=== PATIENT | male | born 1980 | race Caucasian/White ===

== ENCOUNTER 2016-07-30 18:16 | Emergency (ER) | payer OTHER, MEDICAID ==
[2016-07-30 19:08] VITALS: BP 145/79; PULSE 95; RESP 20; TEMP 98.9
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
== END 2016-07-30 20:17 | disposition left against medical advice (07) ==
LOC: EC 18:16
DX: Z04.1 Encounter for examination and observation following transport accident (principal)
CPT/HCPCS: 99499

== ENCOUNTER 2016-08-06 18:40 | Emergency (ER) | payer OTHER, MEDICAID ==
[2016-08-06 19:04] VITALS: RESP 18
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
[2016-08-06] MEDS ORDERED: HYDROcodone/APAP 10-325MG 1 EACH TAB PO ONE (20:36)
[2016-08-06 21:01] VITALS: BP 131/71; PULSE 95; TEMP 98.2
== END 2016-08-06 21:32 | disposition home or self-care (01) ==
LOC: EC 18:40
DX: S83.91XA Sprain of unspecified site of right knee, initial encounter (principal); S80.11XA Contusion of right lower leg, initial encounter; Z87.891 Personal history of nicotine dependence; Z98.890 Other specified postprocedural states; V87.8XXA Person injured in other specified noncollision transport accidents involving motor vehicle (traffic), initial encounter; Y92.410 Unspecified street and highway as the place of occurrence of the external cause
CPT/HCPCS: 73562; 93971; 99284; L1830

== ENCOUNTER 2016-11-28 19:58 | Emergency (ER) | payer MEDICAID ==
[2016-11-28] MEDS ORDERED: KETOROLAC 60 MG/2 ML VIAL IM STA (20:27)
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
[2016-11-28] MEDS ORDERED: AMOXICILLIN 875 MG TAB PO STA (21:30)
[2016-11-28] MEDS ORDERED: LIDOCAINE/EPINEPHR/TETRACAINE 5 ML BOTTLE TOPICAL ONE (21:37)
[2016-11-28 22:12] VITALS: RESP 18
[2016-11-28] MEDS ORDERED: LORazepam 1 MG TAB PO STA (23:05)
[2016-11-28] MEDS ORDERED: HYDROcodone/APAP 7.5-325MG 1 EACH TAB PO ONE (23:05)
[2016-11-28 23:33] VITALS: BP 133/66; PULSE 89; TEMP 97.1
== END 2016-11-28 23:34 | disposition home or self-care (01) ==
LOC: EC 19:58
DX: S02.5XXA Fracture of tooth (traumatic), initial encounter for closed fracture (principal); S01.81XA Laceration without foreign body of other part of head, initial encounter; F41.9 Anxiety disorder, unspecified; Z79.899 Other long term (current) drug therapy; Z87.891 Personal history of nicotine dependence; Z53.29 Procedure and treatment not carried out because of patient's decision for other reasons; Y09 Assault by unspecified means; Y93.01 Activity, walking, marching and hiking
CPT/HCPCS: 99283 ×2; 96372 ×2; 70486; 70450; J1885

== ENCOUNTER 2016-12-11 14:44 | Emergency (ER) | payer MEDICAID ==
[2016-12-11 15:20] VITALS: BP 151/87; PULSE 92; RESP 18; TEMP 97.8
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
== END 2016-12-11 16:10 | disposition home or self-care (01) ==
LOC: EC 14:44
DX: K08.89 Other specified disorders of teeth and supporting structures (principal); K13.0 Diseases of lips; R22.0 Localized swelling, mass and lump, head; Z87.891 Personal history of nicotine dependence; Z79.899 Other long term (current) drug therapy
CPT/HCPCS: 70140; 99283

== ENCOUNTER 2017-08-18 14:45 | Emergency (ER) | payer MEDICAID ==
--- NOTE | 2017-08-18 14:58 | ED ---
General Adult HPI - General Chief complaint: Anxiety Stated complaint: Anxiety Time Seen by Provider: 08/18/17 14:57 Source: patient Limitations: no limitations - History of Present Illness Initial comments: Patient presents for acute anxiety. Patient states he donates plasma regularly for the past 8 years, states he was called a few days ago and informed he tested positive for HIV, hepatitis B, hepatitis C. Patient states she has no history of these diseases. States she was told that lab results for these tests were inconclusive and repeat testing would need to be done. States he [facility], was told it would be weeks before confirmatory tests were back. He states since finding out he has been unable to eat and sleep because he is concerned about his health. Patient denies suicidal or homicidal ideation, states "no I'm trying to live! I'm worried about my health". Patient states he is , monogamous with his . States his has never had any sexual partners other than him. Patient states [facility] was in [facility] 10 years in the past, states he was tested for these diseases when entering and exiting [facility] and tests were negative at that time. Patient denies ever using any illicit drugs, IV drug use. Patient states he did get tattoos, however he was tested well [facility] after getting his 2 days. Patient states he is asymptomatic other than recently feeling anxious and having insomnia because of worry about his recent lab findings. Patient denies fevers, chills, fatigue, weight changes, diaphoresis, frequent illness, recent illness. - Related Data Home Medications Medication Instructions Recorded Confirmed Buprenorphine HCl/Naloxone HCl 1 tab SL DAILY 11/28/16 11/28/16 [Buprenorphin-Naloxon 8-2 mg Sl] Previous Rx's Medication Instructions Recorded Amoxicillin 875 mg PO Q12HR #14 tablet 11/28/16 HYDROcodone/APAP 7.5-325MG [Harrah 1 tab PO Q6HR PRN #12 tab 11/28/16 7.5-325] Cephalexin [Keflex] 500 mg PO Q12HR 10 Days cap 12/11/16 ALPRAZolam [Xanax] 0.5 mg PO Q8HR PRN 2 Days #6 tab 08/18/17 Allergies Allergy/AdvReac Type Severity Reaction Status Date / Time No Known Allergies Allergy Verified 08/18/17 14:59 Review of Systems ROS Statement: Those systems with pertinent positive or pertinent negative responses have been documented in the HPI. ROS Other: All systems not noted in ROS Statement are negative. Constitutional: Denies: fever, chills, weakness, weight change, night sweats Eyes: Denies: vision change ENT: Denies: throat pain, congestion Respiratory: Denies: cough, dyspnea Cardiovascular: Denies: chest pain, palpitations Endocrine: Denies: fatigue Gastrointestinal: Denies: abdominal pain, nausea, vomiting Genitourinary: Denies: dysuria, frequency Musculoskeletal: Denies: back pain, arthralgia, myalgia Skin: Denies: rash, change in color Neurological: Denies: headache Psychiatric: Reports: anxiety. Denies: depression, auditory hallucinations, visual hallucinations, homicidal thoughts, suicidal thoughts Hematological/Lymphatic: Denies: easy bleeding Past Medical History Past Medical History: No Reported History History of Any Multi-Drug Resistant Organisms: None Reported Past Surgical History: Orthopedic Surgery Additional Past Surgical History / Comment(s): JOSEE ANKLE POOL. hand Past Psychological History: No Psychological Hx Reported Smoking Status: Former smoker Past Alcohol Use History: None Reported Past Drug Use History: None Reported General Exam - General Exam Comments Initial Comments: Sitting up on side of bed, patient appears worried, otherwise calm and pleasant. Patient tears up at times. Well-groomed well-dressed, well appearing. Limitations: no limitations General appearance: alert Head exam: Present: atraumatic, normocephalic Eye exam: Present: normal appearance, PERRL, EOMI ENT exam: Present: normal exam, normal oropharynx, mucous membranes moist Neck exam: Present: normal inspection, full ROM. Absent: tenderness, meningismus Respiratory exam: Present: normal lung sounds bilaterally. Absent: respiratory distress, wheezes, rales Cardiovascular Exam: Present: regular rate, normal rhythm. Absent: bradycardia , tachycardia GI/Abdominal exam: Present: soft. Absent: distended, tenderness, guarding, rebound Extremities exam: Present: normal inspection, other (Multiple tattoos to the arms bilaterally) Back exam: Present: normal inspection, full ROM Neurological exam: Present: alert, oriented X3 Psychiatric exam: Present: normal affect, normal mood. Absent: depressed, agitated, homicidal ideation, suicidal ideation Skin exam: Present: warm, dry, intact, normal color Course Vital Signs 08/18/17 14:52 Temperature 98.0 F Pulse Rate 114 H Respiratory 20 Rate Blood Pressure 157/106 O2 Sat by Pulse 97 Oximetry Medical Decision Making - Medical Decision Making Patient not actively suicidal or homicidal. Patient is very concerned about his health. Patient states that he has not been able to eat or sleep, has affected his recent work since being told he might have HIV and hepatitis. Patient's confirmatory tests have been drawn already yesterday by [facility], patient is awaiting results. Patient states she has no primary care physician, referral provided. Patient agrees to follow-up as an outpatient regarding symptoms and concerns with primary care physician. We'll give 2 days prescription Xanax for acute anxiety and sleep aid. Patient to return to ER if new or worsening symptoms. Patient discharged home. Patient is happy with plan of care. Disposition Clinical Impression: Anxiety Disposition: HOME SELF-CARE Condition: Good Instructions: Generalized Anxiety Disorder (ED) Additional Instructions: Follow-up with the health department for test results. Follow up with primary care physician for further management of anxiety, referral to psychiatry. Prescriptions: ALPRAZolam [Xanax] 0.5 mg PO Q8HR PRN 2 Days #6 tab PRN Reason: Anxiety Is patient prescribed a controlled substance at d/c from ED?: Yes When asked, does pt state using other controlled substances?: No If prescribed controlled substance>3 days was MAPS reviewed?: Prescribed <3 Days Referrals: Jesus Washington MD [STAFF PHYSICIAN] - 1-2 days
[2017-08-18 14:59] VITALS: BP 157/106; PULSE 114; RESP 20; TEMP 98
== END 2017-08-18 16:15 | disposition home or self-care (01) ==
LOC: EC 14:45
DX: F41.9 Anxiety disorder, unspecified (principal); Z87.891 Personal history of nicotine dependence; Z79.899 Other long term (current) drug therapy
CPT/HCPCS: 99283

== ENCOUNTER 2018-05-04 21:57 | Emergency (ER) | payer MEDICAID ==
[2018-05-04 22:04] VITALS: BP 152/91; PULSE 102; RESP 18; TEMP 98.6
--- NOTE | 2018-05-04 22:36 | ED ---
GI Bleed HPI - General Source: patient Mode of arrival: ambulatory Limitations: no limitations <Em Pritchett - Last Filed: 05/04/18 22:33> <Larisa Keita - Last Filed: 05/05/18 06:07> - General Chief complaint: GI Bleed Stated complaint: male gu Time Seen by Provider: 05/04/18 22:08 - History of Present Illness Initial comments: 38-year-old male denies past medical history presenting today for chief complaint of blood in stools. Patient states he has had blood in his stools for the past week, he states is inside the stools he denies watery blood in stools. Patient states that he has no abdominal pain A nausea or vomiting. He denies history of hemorrhoids. Patient denies any dizziness, weakness, fever, chills, night sweats, testicular pain or any other complaints. Patient states he did have one loose stool today with blood. Patient discussed this concern with his girlfriend who felt he should come to the emergency department for evaluation. Upon arrival pt BP elevated, pt appears well in stable condition. Patient denies any recent shortness of breath, chest pain, back pain, numbness or tingling, dysuria or hematuria, constipation, headaches or visual changes, or any other complaints. (Em Pritchett) - Related Data Home Medications Medication Instructions Recorded Confirmed Buprenorphine HCl/Naloxone HCl 1 film SL DAILY 05/04/18 05/04/18 [Suboxone 2 mg-0.5 mg Sl Film] Allergies Allergy/AdvReac Type Severity Reaction Status Date / Time No Known Allergies Allergy Verified 05/04/18 22:20 Review of Systems ROS Other: All systems not noted in ROS Statement are negative. <Em Pritchett - Last Filed: 05/04/18 22:33> ROS Other: All systems not noted in ROS Statement are negative. <Larisa Keita - Last Filed: 05/05/18 06:07> ROS Statement: Those systems with pertinent positive or pertinent negative responses have been documented in the HPI. Past Medical History Past Medical History: No Reported History History of Any Multi-Drug Resistant Organisms: None Reported Past Surgical History: Orthopedic Surgery Additional Past Surgical History / Comment(s): JOSEE ANKLE POOL. hand Past Psychological History: No Psychological Hx Reported Smoking Status: Former smoker Past Alcohol Use History: None Reported Past Drug Use History: None Reported <BeckcrisRebecaEm L - Last Filed: 05/04/18 22:33> General Exam Limitations: no limitations <Rebeca Pritchettagustin Yeager - Last Filed: 05/04/18 22:33> - General Exam Comments Initial Comments: General: The patient is awake and alert, in no distress, and does not appear acutely ill. Eye: Pupils are equal, round and reactive to light, extra-ocular movements are intact. No nystagmus. There is normal conjunctiva bilaterally. No signs of icterus. Ears, nose, mouth and throat: There are moist mucous membranes and no oral lesions. Neck: The neck is supple, there is no tenderness or JVD. Cardiovascular: There is a regular rate and rhythm. No murmur, rub or gallop is appreciated. Respiratory: Lungs are clear to auscultation, respirations are non-labored, breath sounds are equal. No wheezes, stridor, rales, or rhonchi. Gastrointestinal: Soft, non-distended, non-tender abdomen without masses or organomegaly noted. There is no rebound or guarding present. No CVA tenderness. Bowel sounds are unremarkable. Pt left before rectal performed Musculoskeletal: Normal ROM, no tenderness. Strength 5/5. Sensation intact. Radial pulses equal bilaterally 2+. Neurological: A&O x 3. CN II-XII intact, There are no obvious motor or sensory deficits. Coordination appears grossly intact. Speech is normal. Skin: Skin is warm and dry and no rashes or lesions are noted. Psychiatric: Cooperative, appropriate mood & affect, normal judgment. (Em Pritchett) Course Vital Signs 05/04/18 22:01 Temperature 98.6 F Pulse Rate 102 H Respiratory 18 Rate Blood Pressure 152/91 O2 Sat by Pulse 99 Oximetry Medical Decision Making <ShreyasEm Yeager - Last Filed: 05/04/18 22:33> <Larisa Keita - Last Filed: 05/05/18 06:07> - Medical Decision Making 38-year-old male presenting for blood in stools. Patient history obtained, I begin physical examination. Patient received a text stating that his friend had from suicide. Patient stated he needed to leave right away. Patient left without completion of treatment disposition. Patient left AGAINST MEDICAL ADVICE, patient left without receiving AMA papers. Patient appears sad/upset-but stable. (Em Pritchett) I was available for consultation in the emergency department. The history and physical exam were done by the midlevel provider. I was consulted for this patient's care. I reviewed the case with the midlevel provider and based on their presentation of the patient, I agree with the assessment, medical decision making and plan of care as documented. I saw the patient walking out of the department he was in no acute distress. Apparently the patient had a personal emergency and needed to leave urgently. (Larisa Keita) Disposition Is patient prescribed a controlled substance at d/c from ED?: No Time of Disposition: 22:33 <Em Pritchett - Last Filed: 05/04/18 22:33> <Larisa Keita - Last Filed: 05/05/18 06:07> Clinical Impression: Bloody stools, Left against medical advice Disposition: Left Against Medical Advice Condition: Undetermined Referrals: None,Stated [Primary Care Provider] - 1-2 days
== END 2018-05-04 22:34 | disposition left against medical advice (07) ==
LOC: EC 21:57
DX: K92.1 Melena (principal); R03.0 Elevated blood-pressure reading, without diagnosis of hypertension; Z87.891 Personal history of nicotine dependence; Z98.890 Other specified postprocedural states; Z79.899 Other long term (current) drug therapy
CPT/HCPCS: 99284

== ENCOUNTER 2019-05-30 19:40 | Emergency (ER) | payer MEDICAID ==
[2019-05-30 20:05] VITALS: BP 147/69; PULSE 107; RESP 20; TEMP 97.7
[2019-05-30] MEDS ORDERED: SULFAMETH-TMP DS STARTER PACK 2 TAB BTL PO STA (20:21)
--- NOTE | 2019-05-30 20:23 | ED ---
General Adult HPI - General Chief complaint: Wound/Laceration Stated complaint: Rash Time Seen by Provider: 05/30/19 20:06 Source: patient Mode of arrival: ambulatory Limitations: no limitations - History of Present Illness Initial comments: Patient is a 39-year-old male presenting to emergency Department with a chief complaint of a rash. Patient reports the rash has been on warfarin last several days after he used his girlfriend's razor to shave his legs. States she has developed multiple lesions on bilateral lower extremities, around his region and buttocks. Denies any active drainage at this time. States the lesions are larger than others. States they are painful especially the one on his right thigh and left lower leg. Denies any night sweats or chills. Does report itching. Denies taking medication to alleviate the symptoms. - Related Data Home Medications Medication Instructions Recorded Confirmed Buprenorphine HCl/Naloxone HCl 1 film SL DAILY 05/04/18 05/04/18 [Suboxone 2 mg-0.5 mg Sl Film] Previous Rx's Medication Instructions Recorded Sulfamethox-Tmp 800-160Mg [Bactrim 1 each PO Q12HR #20 tab 05/30/19 Ds] Allergies Allergy/AdvReac Type Severity Reaction Status Date / Time No Known Allergies Allergy Verified 05/30/19 20:04 Review of Systems ROS Statement: Those systems with pertinent positive or pertinent negative responses have been documented in the HPI. ROS Other: All systems not noted in ROS Statement are negative. Past Medical History Past Medical History: No Reported History History of Any Multi-Drug Resistant Organisms: None Reported Past Surgical History: Orthopedic Surgery Additional Past Surgical History / Comment(s): JOSEE ANKLE POOL. hand Past Psychological History: No Psychological Hx Reported Smoking Status: Former smoker Past Alcohol Use History: None Reported Past Drug Use History: None Reported General Exam Limitations: no limitations General appearance: alert, in no apparent distress Head exam: Present: atraumatic, normocephalic, normal inspection Eye exam: Present: normal appearance Pupils: Present: normal accommodation ENT exam: Present: normal exam, normal oropharynx Neck exam: Present: normal inspection, full ROM Respiratory exam: Present: normal lung sounds bilaterally. Absent: respiratory distress, wheezes Cardiovascular Exam: Present: regular rate, normal rhythm, normal heart sounds exam: Present: normal inspection (No rash on the penis or testicles.) Extremities exam: Present: full ROM. Absent: normal inspection (Rash bilateral lower extremities) Back exam: Present: normal inspection, full ROM Neurological exam: Present: alert Psychiatric exam: Present: normal affect, normal mood Skin exam: Present: warm, dry, intact, normal color, rash (Fully colitis on bilateral lower extremities. Abscess-like formation noted on the right thigh but no fluctuance noted. No incision and drainage at this time.) Course Vital Signs 05/30/19 20:02 Temperature 97.7 F Pulse Rate 107 H Respiratory 20 Rate Blood Pressure 147/69 O2 Sat by Pulse 96 Oximetry Medical Decision Making - Medical Decision Making Patient is a 39-year-old male presenting to the emergency department with a chief complaint of a rash. Patient used his girlfriend's razor to shave his legs which causes him to develop a rash. She had also developed a similar rash. There appears to be an abscess-like formation in the right upper thigh but no fluctuance is appreciated. This will not be incision and drained at this time. Patient started on Bactrim in the ED. Will be discharged with 10 day course of Bactrim. Advised to take Benadryl to alleviate some of the itching symptoms. Also advised to take cool baths to help with the symptoms. Return parameters thoroughly discussed with patient was understanding and agreeable. Case discussed with physician. Disposition Clinical Impression: Staphylococcal infection of skin, Acute folliculitis Disposition: HOME SELF-CARE Condition: Stable Instructions (If sedation given, give patient instructions): Folliculitis (ED) Additional Instructions: Take prescribed medication as directed. Avoid using any razors. Do not share razors with another person. Return to emergency department if symptoms worsen. Prescriptions: Sulfamethox-Tmp 800-160Mg [Bactrim Ds] 1 each PO Q12HR #20 tab Is patient prescribed a controlled substance at d/c from ED?: No Referrals: None,Stated [Primary Care Provider] - 1-2 days Time of Disposition: 20:22
== END 2019-05-30 20:31 | disposition home or self-care (01) ==
LOC: EC 19:40
DX: L73.9 Follicular disorder, unspecified (principal); B95.8 Unspecified staphylococcus as the cause of diseases classified elsewhere; Z87.891 Personal history of nicotine dependence
CPT/HCPCS: 99282

== ENCOUNTER 2020-10-22 11:16 | Emergency (ER) | payer OTHER ==
[2020-10-22 11:20] VITALS: BP 137/84; PULSE 98; RESP 18; TEMP 99.3
--- NOTE | 2020-10-22 12:26 | ED ---
General Adult HPI - General Chief complaint: Skin/Abscess/Foreign Body Stated complaint: rash Time Seen by Provider: 10/22/20 11:32 Source: patient, family, RN notes reviewed Mode of arrival: ambulatory Limitations: no limitations - History of Present Illness Initial comments: 40-year-old male presents to the emergency room for a chief complaint of poison cristina. Patient reports that he was at a libertarian in the [facility] last night with obtained. Patient States He Has Red Lesions and Itching on the Arms and Low Back. Patient Also Has a Lesion on His Face. Patient Is Concerned This Could Be Poison Cristina. Patient Denies Fevers or Chills. States This Just Started Last Night. Patient does also admit to doing meth at this libertarian. Patient has no other complaints at this time including shortness of breath, chest pain, abdominal pain, nausea or vomiting, headache, or visual changes. - Related Data Home Medications Medication Instructions Recorded Confirmed Buprenorphine HCl/Naloxone HCl 1 film SL DAILY 05/04/18 05/04/18 [Suboxone 2 mg-0.5 mg Sl Film] Previous Rx's Medication Instructions Recorded Sulfamethox-Tmp 800-160Mg [Bactrim 1 each PO Q12HR #20 tab 05/30/19 Ds] hydrOXYzine HCL [Atarax] 25 mg PO TID PRN #20 tab 10/22/20 predniSONE 10 mg PO DIRECTED 16 Days #68 10/22/20 tab valACYclovir HCL [Valtrex] 2,000 mg PO BID 1 Days #4 tablet 10/22/20 Allergies Allergy/AdvReac Type Severity Reaction Status Date / Time No Known Allergies Allergy Verified 10/22/20 11:20 Review of Systems ROS Statement: Those systems with pertinent positive or pertinent negative responses have been documented in the HPI. ROS Other: All systems not noted in ROS Statement are negative. Past Medical History Past Medical History: No Reported History History of Any Multi-Drug Resistant Organisms: None Reported Past Surgical History: Orthopedic Surgery Additional Past Surgical History / Comment(s): JOSEE ANKLE POOL. hand Past Psychological History: No Psychological Hx Reported Smoking Status: Never smoker Past Alcohol Use History: None Reported Past Drug Use History: None Reported General Exam Limitations: no limitations General appearance: alert, in no apparent distress Head exam: Present: atraumatic Eye exam: Present: normal appearance, PERRL, EOMI. Absent: scleral icterus, conjunctival injection ENT exam: Absent: normal oropharynx (Patient has erythematous raised papules on the right lower lip area.) Neck exam: Present: normal inspection, full ROM. Absent: tenderness Respiratory exam: Present: normal lung sounds bilaterally. Absent: respiratory distress, wheezes Cardiovascular Exam: Present: regular rate, normal rhythm, normal heart sounds GI/Abdominal exam: Present: soft, normal bowel sounds. Absent: distended, tenderness Skin exam: Present: erythema (Patient has erythematous raised plaques and streaking on the arms and low back. There is some weeping involved. There is no cellulitis or abscess.) Course Vital Signs 10/22/20 11:17 Temperature 99.3 F Pulse Rate 98 Respiratory 18 Rate Blood Pressure 137/84 O2 Sat by Pulse 96 Oximetry Medical Decision Making - Medical Decision Making Clinically consistent with a contact dermatitis, possibly poison IV. This is widespread on his arms and back. We will treat with Atarax and steroids. We will also treat with antiviral for lip lesion. Patient will follow up with his doctor. He will return for any worsening symptoms. Disposition Clinical Impression: Contact dermatitis, Lip lesion Disposition: HOME SELF-CARE Condition: Good Instructions (If sedation given, give patient instructions): Contact Dermatitis (ED), Oral Herpes Simplex Virus Infections (ED) Additional Instructions: Take medications as directed. Do oatmeal baths, cool wet compresses, or ice packs. Follow-up with your doctor in one to 2 days. Return to the emergency room for any worsening symptoms. Prescriptions: hydrOXYzine HCL [Atarax] 25 mg PO TID PRN #20 tab PRN Reason: Itching predniSONE 10 mg PO DIRECTED 16 Days #68 tab valACYclovir HCL [Valtrex] 2,000 mg PO BID 1 Days #4 tablet Is patient prescribed a controlled substance at d/c from ED?: No Referrals: Baudilio Bradley MD [Primary Care Provider] - 1-2 days Time of Disposition: 12:17
== END 2020-10-22 12:41 | disposition home or self-care (01) ==
LOC: EC 11:16
DX: L25.9 Unspecified contact dermatitis, unspecified cause (principal); K13.0 Diseases of lips
CPT/HCPCS: 99282